=== PATIENT | female | born 1985 | race Caucasian/White ===

== ENCOUNTER 2017-12-05 08:20 | Emergency (ER) | payer BC ==
--- NOTE | 2017-12-05 08:28 | UC ---
Throat Pain/Nasal Tacos HPI - HPI Summary HPI Summary: 32 y/o female presents to the urgent care c/o sore throat, chills and mild NASCIMENTO for the past 2 days. Pt has not taking anything to alleviate symptoms. Family w / similar symptoms. Pain w/ swallowing is 3/10. Pt denies fever, cough, URI, SOB , chest pain, abdominal pain, N/v/D. - History of Current Complaint Stated Complaint: SORE THROAT Time Seen by Provider: 12/05/17 08:27 Hx Obtained From: Patient ?: No Onset/Duration: Gradual Onset, Lasting Days - 2 days, Still Present, Worse Since - today Severity: Mild Pain Intensity: 3 Pain Scale Used: 0-10 Numeric Cough: None Associated Signs & Symptoms: Positive: Dysphagia, Other - chills. Negative: Fever - Epiglottits Risk Factors Epiglottis Risk Factors: Negative - Allergies/Home Medications Allergies/Adverse Reactions: Allergies Allergy/AdvReac Type Severity Reaction Status Date / Time No Known Allergies Allergy Verified 12/05/17 08:35 PMH/Surg Hx/FS Hx/Imm Hx Previously Healthy: Yes - Pt denies PMHX - Family History Family History: Hypothyrodism - Social History Occupation: Employed Full-time Lives: With Family Review of Systems Constitutional: Chills Skin: Negative Eyes: Negative ENT: Sore Throat Respiratory: Negative Cardiovascular: Negative Gastrointestinal: Negative Genitourinary: Negative Motor: Negative Neurovascular: Negative Musculoskeletal: Negative Neurological: Headache Psychological: Negative Is Patient Immunocompromised?: No All Other Systems Reviewed And Are Negative: Yes Physical Exam - Summary Physical Exam Summary: VITAL SIGNS: Reviewed. GENERAL: Patient is a well developed and nourished female who is sitting comfortable in the examining table. Patient is not in any acute respiratory distress. HEAD AND FACE: No signs of trauma. No ecchymosis, hematomas or skull depressions. No sinus tenderness. EYES: PERRLA, EOMI x 2, No injected conjunctiva, no nystagmus. No photophobia. EARS: Hearing grossly intact. Ear canals and tympanic membranes are within normal limits. MOUTH: Positive pharynx with erythema, exudates, palatal petechiae. B/L tonsillar enlargement with exudate. Uvula in midline. NECK: Supple, trachea is midline, Positive anterior cervical lymphadenopathy, no JVD, no carotid bruit, no c-spine tenderness, neck with full ROM. No meningeal signs, no Kernig's or brudzinskis signs. CHEST: Symmetric, no tenderness at palpation LUNGS: Clear to auscultation bilaterally. No wheezing or crackles. CVS: Regular rate and rhythm, S1 and S2 present, no murmurs or gallops appreciated. ABDOMEN: Soft, non-tender. No signs of distention. No rebound no guarding, and no masses palpated. Bowel sounds are normal. EXTREMITIES: FROM in all major joints, no edema, no cyanosis or clubbing. NEURO: Alert and oriented x 3. No acute neurological deficits. Speech is normal and follows commands. SKIN: Dry and warm Triage Information Reviewed: Yes Throat Pain/Nasal Course/Dx - Course Course Of Treatment: 32 y/o female presents to the urgent care c/o sore throat, chills and mild NASCIMENTO for the past 2 days. Pt has not taking anything to alleviate symptoms. Family w/ similar symptoms. Pain w/ swallowing is 3/10. Pt denies fever, cough, URI, SOB, chest pain, abdominal pain, N/v/D. Hx obtained. Pt w/ pharyngitis on examination. Rapid strep ordered, result: negative. Viral pharyngitis.Pt Rx ibuprofen PO to alleviates symptoms of pain and swelling. Advised on hand washing to avoid spreading. Pt advised to rest, eat well and avoid strenuous exercise. If symptoms do not improve or worsen advised to return to the urgent care or f/u with her PCP for further evaluation and treatment. Pt understood and agreed w/ plan of care. - Differential Dx/Diagnosis Differential Diagnosis/HQI/PQRI: Influenza, Laryngitis, Mononucleosis, Pharyngitis, Tonsillitis, URI Provider Diagnoses: 1- Viral Pharyngitis Discharge - Sign-Out/Discharge Documenting (check all that apply): Patient Departure - D/c home All imaging exams completed and their final reports reviewed: No Studies - Discharge Plan Condition: Good Disposition: HOME Prescriptions: Ibuprofen TAB* [Motrin TAB* 600 MG] 600 mg PO Q6H PRN #30 tab PRN Reason: Sore Throat Patient Education Materials: Pharyngitis (ED) Referrals: Bijal Esposito MD [Medical Doctor] - 3 Days Additional Instructions: 1-Please take ibuprofen PO q6-8hrs prn as instructed after meals to alleviate pain and swelling. Increase fluid intake, eat well, rest and avoid strenuous exercise 2-If symptoms do not improve or worsen please return to the urgent care or f/u with your PCP in 3 days for further evaluation and treatment. - Billing Disposition and Condition Condition: GOOD Disposition: Home - Attestation Statements Provider Attestation: Per institutional requirements, I have reviewed the chart, however, I was not consulted specifically or made aware of this patient by the midlevel provider. I did not personally evaluate, interact with , or disposition this patient
[2017-12-05 08:35] VITALS: BP 102/75
== END 2017-12-05 09:08 | disposition home or self-care (01) ==
LOC: UCEAST 08:20
DX: J02.9 Acute pharyngitis, unspecified (principal)
CPT/HCPCS: 87651; 99212; G0463

== ENCOUNTER 2018-04-06 15:36 | Emergency (ER) | payer BC ==
[2018-04-06 15:44] VITALS: BP 124/90
--- NOTE | 2018-04-06 17:27 | UC ---
Abdominal Pain Female HPI - HPI Summary HPI Summary: 33-year-old female presents with 2 week history of intermittent epigastric pain. States pain has become more intense the past 2 days. Describes the pain as a gnawing pain that tends to occur around supper time and then slowly subsides over a matter of a couple hours. Associated with some mild bloating and nausea when the pain is at its most intense. States she's experienced similar pains in the past particularly at times of high stress. States she is having regular normal bowel movements. Denies fever, chills, chest pain, palpitations, shortness of breath, heartburn, vomiting, diarrhea, dysuria, frequency, urgency, vaginal discharge, or abnormal bleeding. Last menstrual period was approximately 3 weeks ago. - History of Current Complaint Chief Complaint: UCGI Stated Complaint: ABDOMINAL PAIN Time Seen by Provider: 04/06/18 16:52 Hx Obtained From: Patient Hx Last Menstrual Period: 03/21/18 Pain Intensity: 8 Allergies/Adverse Reactions: Allergies Allergy/AdvReac Type Severity Reaction Status Date / Time No Known Allergies Allergy Verified 04/06/18 15:44 PMH/Surg Hx/FS Hx/Imm Hx Previously Healthy: Yes - Denies significant PMH - Surgical History Surgical History: None - Family History Known Family History: Positive: Non-Contributory Family History: Hypothyrodism - Social History Occupation: Employed Full-time Lives: With Family Alcohol Use: None Substance Use Type: None Smoking Status (MU): Never Smoked Tobacco Review of Systems All Other Systems Reviewed And Are Negative: Yes Constitutional: Negative: Fever, Chills ENT: Positive: Negative Respiratory: Negative: Shortness Of Breath, Cough Cardiovascular: Negative: Palpitations, Chest Pain Gastrointestinal: Positive: Abdominal Pain, Nausea. Negative: Vomiting, Diarrhea Genitourinary: Negative: Dysuria, Hematuria, Frequency, Urgency, Vaginal/Penile Discharge, Ulceration/Lesion Musculoskeletal: Positive: Negative Neurological: Positive: Negative Is Patient Immunocompromised?: No Physical Exam - Summary Physical Exam Summary: GENERAL APPEARANCE: Well developed, well nourished, alert and cooperative, and appears to be in no acute distress. CARDIAC: Normal S1 and S2. No S3, S4 or murmurs. Rhythm is regular. There is no peripheral edema, cyanosis or pallor. Extremities are warm and well perfused. Capillary refill is less than 2 seconds. LUNGS: Clear to auscultation without rales, rhonchi, wheezing or diminished breath sounds. ABDOMEN: Positive bowel sounds. Soft, nondistended. Mild epigastric tenderness. No guarding or rebound. No masses or hepatosplenomegally. No CVA tenderness. MUSKULOSKELETAL: ROM intact to all extremities. No joint erythema or tenderness. Normal muscular development. Normal gait. SKIN: Skin normal color, texture and turgor with no lesions or eruptions. Triage Information Reviewed: Yes Vital Signs: Initial Vital Signs Temp 97.7 F 04/06/18 15:38 Pulse 83 04/06/18 15:38 Resp 16 04/06/18 15:38 BP 124/90 04/06/18 15:38 Pulse Ox 100 04/06/18 15:38 Vital Signs Reviewed: Yes Diagnostics - Laboratory Diagnostic Studies Completed/Ordered: POC UA trace blood otherwise normal. Urine negative. Abd Pain Female Course/Dx - Course Course Of Treatment: 33-year-old female presents with 2 week history of intermittent epigastric pain. States pain has become more intense the past 2 days. Describes the pain as a gnawing pain that tends to occur around supper time and then slowly subsides over a matter of a couple hours. Associated with some mild bloating and nausea when the pain is at its most intense. States she' s experienced similar pains in the past particularly at times of high stress. States she is having regular normal bowel movements. Denies fever, chills, chest pain, palpitations, shortness of breath, heartburn, vomiting, diarrhea, dysuria, frequency, urgency, vaginal discharge, or abnormal bleeding. Last menstrual period was approximately 3 weeks ago. Afebrile. Vital signs stable. Exam reveals an adult female in no acute distress with mild epigastric tenderness without rebound or guarding an otherwise unremarkable exam. POC UA trace blood. Urine negative. Her history and exam are consistent with possible peptic ulcer disease therefore plan start her on ranitidine 150 mg twice a day. I did discuss with the patient I cannot fully rule out other causes including gallbladder disease or pancreatitis although I have low suspicion for these. She is to follow-up with her primary care provider in 7 days for recheck of her symptoms. Anticipatory guidance and warning symptoms requiring immediate evaluation in the emergency room were reviewed with the patient. She verbalizes understanding and is in agreement with this plan of care. - Differential Dx/Diagnosis Differential Diagnosis: Ectopic , Gall Bladder Disease, Pancreatitis, Peptic Ulcer Disease, , Urinary Tract Infection Provider Diagnosis: Acute abdominal pain Discharge - Sign-Out/Discharge Documenting (check all that apply): Patient Departure All imaging exams completed and their final reports reviewed: No Studies - Discharge Plan Condition: Stable Disposition: HOME Prescriptions: raNITIdine HCl [Heartburn Relief] 150 mg PO BID #30 tablet Patient Education Materials: Acute Abdominal Pain (ED) Referrals: No Primary Care Phys,NOPCP [Primary Care Provider] - [facility] [place]Outside] Additional Instructions: Your history and exam are consistent with a peptic ulcer disease although I cannot fully exclude other possible causes such as gall bladder disease or pancreatitis. Since you are not running fever at this time I will start you on an acid reducing medication to treat for a peptic ulcer. Start ranitidine 150 mg twice a day. Try to avoid spicy foods or fatty foods as these could aggravate your symptoms. Follow up with your primary care provider in 7 days for recheck of symptoms. I have provided you with the number for the [facility] physician referral service if you need assistance with establishing with a provider. Seek immediate medical attention in the emergency room if you develop fever greater than 100.5 F, have severe or worsening of abdominal pain, persistent vomiting, blood in your vomit or bowel movements, you become weak or dizzy, or have any worsening of symptoms. - Billing Disposition and Condition Condition: STABLE Disposition: Home
== END 2018-04-06 17:38 | disposition home or self-care (01) ==
LOC: UCEAST 15:36
DX: R10.13 Epigastric pain (principal); R11.0 Nausea
CPT/HCPCS: 81003; 84702; 99212; G0463

== ENCOUNTER 2018-09-27 06:15 | Day surgery (SDC) | payer BC ==
[~2018-09-27 06:15] MED LIST: Buffered Lidocaine 1% SYRIN* 1 ML/SYRINGE INTRADERM ONE; Famotidine IV* 10 MG/ML 2 ML (20 mg) IV ONE; Famotidine IV* 10 MG/ML 2 ML (20 mg) ONE; Lactated Ringers 1000 ML Bag* 1,000 ML IV SCH; Scopolamine 1.5 mg* PATCH ONE; Scopolamine 1.5 mg* PATCH TRANSDERM SCH
[2018-09-27] MEDS ORDERED: Ropivacaine 0.2% * 2 MG/ML VIAL ONE (06:48)
[2018-09-27] MEDS ORDERED: Lidocaine 1% w EPI 1:200,000* 30 ML VIAL ONE (06:48)
[2018-09-27] MEDS ORDERED: ceFAZolin VIAL(*) VIAL ONE (07:02)
[2018-09-27] MEDS ORDERED: Midazolam* 1 MG/ML 5 ML VIAL (5 MG) ONE (07:24)
[2018-09-27] MEDS ORDERED: fentaNYL* 50 MCG/ML 2 ML VIAL (100 MCG VIAL) ONE (07:25)
[2018-09-27] MEDS ORDERED: DiMENhydriNATE IV* 50 MG/ML VIAL ONE (08:09)
[2018-09-27] MEDS ORDERED: Ondansetron INJ* 2 MG/ML VIAL ONE (08:09)
[2018-09-27] MEDS ORDERED: Dexamethasone IV* 4 MG/ML 1 ML (4 MG) ONE (08:09)
[2018-09-27] MEDS ORDERED: Succinylcholine* 20 MG/ML 10 ML VIAL ONE (08:09)
[2018-09-27] MEDS ORDERED: Propofol* 10 MG/ML 20 ML BTL ONE (08:09)
[2018-09-27] MEDS ORDERED: Lidocaine 2% PF * 5 ML VIAL ONE (08:09)
[2018-09-27] MEDS ORDERED: HYDROmorphone INJ* 0.5 MG/0.5 ML SYRINGE ONE (09:13)
[2018-09-27] MEDS ORDERED: oxyCODONE TAB* 5 MG TAB PO PRN (09:23)
[2018-09-27] MEDS ORDERED: Acetaminophen TAB* 325 MG PO PRN (09:23)
[2018-09-27] MEDS ORDERED: DiMENhydriNATE IV* 50 MG/ML VIAL IV PUSH PRN (09:23)
[2018-09-27] MEDS ORDERED: HYDROmorphone INJ1* 1 MG/ML SYRINGE IV PRN (09:23)
[2018-09-27] MEDS ORDERED: Naloxone* 0.4 MG/ML 1 ML VIAL IV PRN (09:23)
[2018-09-27] MEDS ORDERED: Acetaminophen TAB* 325 MG ONE (09:47)
--- NOTE | 2018-09-27 11:42 | OP ---
CC: PCP __(?)__ * DATE OF OPERATION: 09/27/18 - [facility] DATE OF : 85 SURGEON: Anahi Millan MD. BIOMEDICAL EQUIPMENT SPECIALIST: KELLY Gurrola. Intermediate Project Manager was needed for the entirety of the case to help with positioning, retraction, and was utilized throughout all portions of the case. ANESTHESIOLOGIST: Dr. Rodriguez. ANESTHESIA: General. PRE-OP DIAGNOSIS: Right anterior cruciate ligament grade 3 rupture. POST-OP DIAGNOSIS: Right anterior cruciate ligament grade 3 rupture. OPERATIVE PROCEDURE: Right knee ACL reconstruction using autograft. COMPLICATIONS: None. ESTIMATED BLOOD LOSS: Minimal. TOURNIQUET TIME: 17 minutes. IMPLANTS USED: [employer]hew SoftSilk 7 x 20 and 9 x 25. INDICATIONS: Susi Aleman is a 33-year-old female who sustained injury to her right knee in mid-April 2018. She had an MRI that confirmed the diagnosis. She did physical therapy. She has persistent instability and would like to have this taken care of. The risks and benefits were discussed at length to include but not limited to bleeding, infection, damage to nerves; vessels; surrounding structures, wound nonhealing, persistent pain, need for surgery, scarring, stiffness, incomplete relief of symptoms, and risks of anesthesia. DESCRIPTION OF PROCEDURE: The patient was greeted in the preoperative area by the attending surgeon. The correct extremity was marked and consent was confirmed. The patient was brought back to the operative suite, where she was placed in the supine position on the operating table and then underwent general anesthesia with LMA intubation, after which she was appropriately positioned on the bed. A lateral post was positioned. An unsterile tourniquet was placed on the proximal thigh. The beanbag was placed to keep the knee at 90 degrees. The right leg was then prepped and draped in the usual sterile fashion beginning with chlorhexidine soap, scrub, and alcohol wipe and a final prep with ChloraPrep. After appropriate surgical pause indicating side, site, procedure, and administration of antibiotics, the tourniquet was inflated to 250 mmHg. The knee was intra-articularly injected with 1% lidocaine with epi. A #15 blade was used to make a midline incision on the patellar tendon extending somewhat medially. The soft tissue was carefully dissected to expose the paratenon, which was incised and saved for later closure. The patellar tendon width was about 31 mm, the center 10 mm was then harvested using 10 blade full-thickness flaps. A proximal bone block was harvested using sagittal saw to be 9 x 23 mm, distally 10 x 30 mm. Bone block was harvested. The graft was then prepared on the back table by the assistant loan processor. Meanwhile, the surgeon closed the patellar tendon with 0-Vicryl with care not to overtighten to cause patella baja. Tourniquet was then deflated. Attention was directed to the arthroscopy portion of the case. Through the capsule, an 11 blade was used to make an incision and the scope was inserted. There was evidence of synovitis as well as a plica. The anteromedial portal was made using 18-gauge for localization. The shaver was used to debride back the abundant plica synovitis, exposed the ACL, which had a grade 3 rupture and was scarred to the PCL. Mary and biters were used to debride the remnant back. The diagnostic arthroscopy portion was then done, the patellofemoral joint had grade 0 to 1 changes. The medial and lateral gutters were intact. The medial compartment was examined. There was intact meniscus with grade 0 to 1 changes of the medial femoral condyle and medial plateau. The knee was placed in figure-of- four and the lateral compartment was examined. There was some fraying near the root of the meniscus, but it did not appear to be unstable. The root was attached. The remainder of the meniscus looked normal. There were grade 0 changes to the lateral femoral condyle, grade 0 to 1 to the lateral plateau. The knee was then placed to 90 degrees and then the femoral wall was then prepared and skeletonized using the electrocautery device. A starting awl was then used to rony the original start reference point and this was checked by changing the camera from the lateral to the medial compartments and is visualized and used as reference point. Then , the tip to tip guide set at around 50 degrees was placed through the center of the tibial tunnel. The tibial footprint, the guidewire was placed. Once this was appropriately placed, the size 10 mm full-bore reamer was used to drill the tunnel. The excess bone was saved for later bone graft. The tunnel was then rasped and care was placed to prevent any fluid egress. The attention was then directed to the femoral tunnel. The Schroeder and Nephew straight femoral guide was then placed in the center of the femoral footprint and then the knee was hyperflexed. The Beath pin was then drilled in the center and the 9 mm low- profile reamer was then used to drill about 24 mm in depth. All excess bone was removed. There was a good back wall. The tunnel was then notched. A #2 Ethibond suture was placed through the islet of the Beath pin and passed through the tunnel and then anterograde through the tibial tunnel as a reference to shuttle the sutures for the graft. The graft, which had been wrapped in a saline-soaked gauze, was then brought to the field and then passed under direct arthroscopic visualization to be well seated in the femoral tunnel. This was then secured with a 7 x 20 mm SoftSilk screw with excellent purchase. The knee was then taken to full extension. There was no evidence of impingement on the graft. The knee was then cycled 15 times. There was no evidence of creep or stress on the graft or tearing of the graft. The scope was brought back to the joint to confirm this. Then, the knee was taken to about 20 to 30 degrees of flexion with tension on the tibial sutures. A size 9 x 25 SoftSilk screw was used to secure the tibial tunnel. This was secured with excellent purchase. The knee was taken through the range of motion. Manuel's was assessed. The scope was brought to the joint and the graft was found to be in good position. The wounds were then copiously irrigated with sterile saline. Final images were obtained. Excess bone graft was then placed in the patellar defect and anything remained was placed in the tibial defect. This was oversewn with 0-Vicryl in the patellar defect and the paratenon was closed with 2-Vicryl in a running fashion. The wounds were copiously irrigated with sterile saline. The skin was closed in layers with 3-0 Monocryl in the subcutaneous in a running fashion. Sterile dressings were applied. Cryo/Cuff and a hinged knee brace was then applied. She was awoken from anesthesia and transferred to PACU in stable condition. POSTOPERATIVE PLAN: She will be nonweightbearing as tolerated and will be discharged on pain medication, antibiotics. DVT prophylaxis was considered, but deferred due to no previous personal or family history. I will see the patient back in 6 to 8 days. [id number]/[facility] #: [id number] [facility] MEDICAL CENTERJett
[2018-09-27 13:26] VITALS: BP 110/78
== END 2018-09-27 10:45 | disposition home or self-care (01) ==
LOC: OREAST 06:15
PROVIDERS: ATTEND Orthopaedic Surgery
DX: S83.511A Sprain of anterior cruciate ligament of right knee, initial encounter (principal); X58.XXXA Exposure to other specified factors, initial encounter; Y92.9 Unspecified place or not applicable; Z87.891 Personal history of nicotine dependence; K21.9 Gastro-esophageal reflux disease without esophagitis; K27.9 Peptic ulcer, site unspecified, unspecified as acute or chronic, without hemorrhage or perforation
CPT/HCPCS: 81025; A9270-GY; C1713; J0330; J0690; J1100; J1170; J1240; J2001; J2250; J2405; J2704; J2795; J3010

== ENCOUNTER 2018-10-03 15:14 | Emergency (ER) | payer BC ==
--- OUTSIDE RECORDS SUMMARY | 2018-10-03 16:50 | XMS REPORT | Continuity of Care Document ---
:1985 External Reference #:[id number] Author Name Yue Roy Care Team Providers Name Role Phone Lindsey Matias DO Primary Care Physician Unavailable Payers Date Identification Numbers Payment Provider Subscriber Effective: 2018 Policy Number: [id number] [employer] Chery Urban Expires: 2018 PayID: [id number] [address] [place] [address] Effective: 2018 Policy Number: [id number] [employer] Marcus Aleman PayID: [id number] [address] [address] [place] [address] Problems Active Problems Provider Date Sprain of cruciate ligament of knee Anahi Millan MD Onset: 09/16/2018 Family History Date Family Member(s) Observation Comments General Cancer Social History Type Date Description Comments Sex Unknown 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 ETOH Use Denies alcohol use Tobacco Use Start: Unknown Patient has never smoked Smoking Status Reviewed: 09/16/18 Patient has never smoked Exercise Type/Frequency Exercises regularly Allergies, Adverse Reactions, Alerts Description No Known Drug Allergies Medications Active Medications SIG Qnty Indications Ordering Provider Date Ranitidine 150 1-2 tablets at 30tabs Anahi Millan MD 08/19/2018 Maximum Strength hour of sleep as 150mg directed Tablets Omeprazole 1 by mouth every Unknown 10mg day Capsules DR Iron (Ferrous 1 tab by mouth Unknown Gluconate) twice a day with 256(28Fe) mg meals Tablets Vitamin B Complex-C Unknown Capsules Vital Signs Date Vital Result Comment 09/16/2018 9:10am Height 61 inches 5'1" Weight 110.00 lb Heart Rate 76 /min BP Systolic 102 mmHg BP Diastolic 58 mmHg Body Temperature 98.2 F Pain Level 2 BMI (Body Mass Index) 20.8 kg/m2 08/19/2018 10:22am Height 61 inches 5'1" Weight 110.00 lb Heart Rate 54 /min Body Temperature 96.2 F Pain Level 1 O2 % BldC Oximetry 99 % BMI (Body Mass Index) 20.8 kg/m2 Encounters Type Date Location Provider Dx Diagnosis Office Visit 09/16/2018 Orthopedic Anahi Millan MD S83.511A Sprain of 9:[facility] anterior cruciate ligament of right knee, init Office Visit 08/19/2018 Orthopedic Anahi Millan MD M25.361 Other 10:00a [facility] instability, right knee S83.511A Sprain of anterior cruciate ligament of right knee, init Plan of Treatment Future Appointment(s):09/27/2018 7:30 am - Whitney Castro PA-C at [facility]10/04/2018 8:30 am - Whitney Castro PA-C at [facility]09/27/2018 7:30 am - Anahi Millan MD at [facility]09/16/2018 - Anahi Millan MDS83.511A Sprain of anterior cruciate ligament of right knee, initialFollow up:Follow up: for h and p or 6-8 days post op
--- OUTSIDE RECORDS SUMMARY | 2018-10-03 16:50 | XMS REPORT | Continuity of Care Document ---
:1985 External Reference #:[id number] Author Name Luis Fernando Castro MD Address [facility] [place] [address] Care Team Providers Name Role Phone Lindsey Matias DO Care Team Information Sisal Operator Unavailable Lindsey Matias DO Primary Care Physician Unavailable Payers Date Identification Numbers Payment Provider Subscriber Policy Number: [id number] [facility] [address] DENAE Chery Urban PayID: [id number] [address] [address] [place] [address] Problems Active Problems Provider Date Epigastric pain Luis Fernando Castro MD Onset: 09/08/2018 Family History Date Family Member(s) Observation Comments Mother Heart Attack Social History Type Date Description Comments Sex Unknown Tobacco Use Start: Unknown Patient has never smoked Smoking Status Reviewed: 09/08/18 Patient has never smoked Allergies, Adverse Reactions, Alerts Description No Known Drug Allergies Medications Active Medications SIG Qnty Indications Ordering Provider Date Omeprazole Lindsey Matias,DO 20mg Capsules Ranitidine HCL Lindsey Matias,DO 150mg Tablets Vital Signs Date Vital Result Comment 09/08/2018 11:06am Height 61.5 inches 5'1.50" Weight 108.00 lb BP Systolic 98 mmHg BP Diastolic 76 mmHg Heart Rate 89 /min BMI (Body Mass Index) 20.1 kg/m2 Plan of Treatment Future Appointment(s):10/25/2018 1:30 pm - Luis Fernando Castro MD at [facility]09/08/2018 - Luis Fernando Castro, MDR10.13 Epigastric painComments:RISKS AND BENEFITS OF THE PROCEDURE WERE DISCUSSED WITH PATIENT. I had a very long discussion with the patient regarding all of her symptoms we discussed possibilities of acid reflux, peptic ulcer disease, hiatal hernia, celiac disease and/or H. pylori. I would like to begin her evaluation with an upper endoscopy and I will make arrangements for it
--- NOTE | 2018-10-03 19:11 | ED ---
Lower Extremity - HPI Summary HPI Summary: This patient is a 33 year old F presenting to [facility] accompanied by father and with a chief complaint of right calf pain since 10/02/18 in the evening ( last pm). Pt had a torn ACL, and had a surgery on her right ACL 09/27/18 (side of current calf pain). Pt removed her knee brace for the first time at PT on 09/30. When pt notified Dr. Millan of her calf pain, she recommended that the pt come to the ED to evaluate for a possible DVT. Patient also reports pain in her bilateral flanks but not in her chest. Patient denies CP, SOB, or drainage on the ACL wound dressing. Pt has a PMH of "stomach ulcers" and anemia. Pt has no PMHx of asthma, DVT or PE. LNMP was 09/21/18. Per triage, the patient rates her calf pain a 2/10 in severity. Vital signs while in room: HR 75 bpm, BP 116/80, O2 sat 100% - History of Current Complaint Chief Complaint: EDExtremityLower Stated Complaint: RT LEG SWELLING AND PAIN PER PT Time Seen by Provider: 10/03/18 16:25 Hx Obtained From: Patient, Family/[employer] - father and her Hx Last Menstrual Period: 09/21/18 Mechanism Of Injury: Other - no injury, ACL surgery 09/27/18 Onset of Pain: Days - last pm Onset/Duration: Days - 10/02/18 evening Severity Initially: Mild Severity Currently: Mild Pain Intensity: 2 Pain Scale Used: 0-10 Numeric Timing: Constant Location: Is Discrete @ - right calf, side of recent surgery Character Of Pain: Aching Associated Signs And Symptoms: Negative: Other - Pos: bilateral flank pain. 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 GARNICA History: Denies: Other Problems/Disorders Musculoskeletal History: Reports: Other Musculoskeletal History - RIGHT ACL TEAR with SURG 09/27/18 Sensory History: Denies: Hx Contacts or Glasses, Hx Hearing Aid Opthamlomology History: Denies: Hx Contacts or Glasses Neurological History: Denies: Other Neuro Impairments/Disorders - Surgical History Surgery Procedure, Year, and Place: WISDOM TEETH REMOVAL-DR. QUINTANILLA- OFFICE Hx Anesthesia Reactions: Yes - NAUSEA AND VOMITING Infectious Disease History: No Infectious Disease History: Denies: Hx Hepatitis, Hx Human Immunodeficiency Virus (HIV), Traveled Outside the [place] in Last 30 Days - Family History Known Family History: Positive: Hypertension, Other - Fibromuscular dysplasia, Osteoarthritis; Neg hx of PE or DVT in family Family History: Hypothyrodism - Social History Lives: With Family - Alcohol Use: None Substance Use Type: Reports: None Hx Tobacco Use: No Smoking Status (MU): Never Smoked Tobacco Have You Smoked in the Last Year: No Review of Systems Constitutional: Negative Negative: Chest Pain Negative: Shortness Of Breath Positive: other - bilateral flank pain Musculoskeletal: Other - pos - calf pain Negative: Other - neg - drainage on dressing Skin: Negative Neurological: Negative Psychological: Normal All Other Systems Reviewed And Are Negative: Yes Physical Exam - Summary Physical Exam Summary: Appearance: well-appearing, minimal pain distress in right calf, well-nourished Skin: Warm, color reflects adequate perfusion, dry, ecchymosis on right lower calf, sutures dry and intact, Steri-Strips remain in place Head: Normal Head/Face inspection, atraumatic Eyes: Conjunctiva clear ENT: Normal inspection Neck: Supple, no nodes, no JVD Respiratory: Lungs clear, normal breath sounds, no respiratory distress Cardio: RRR, No murmur, pulses normal, brisk capillary refill Abdomen: Soft, nontender, no CVAT Bowel sounds: Present Musculoskeletal: Strength Intact/ROM intact except right knee, no calf tenderness, but anterior tibial discomfort in area of ecchymosis, able to flex knee to 150 degrees, no edema. Minimal discomfort upon palpation of her right 5th intercostal space. No crepitus, no chest wall ecchymosis in this area. Psychological: Normal Neuro: Alert, muscle tone normal, no focal deficit Triage Information Reviewed: Yes Vital Signs On Initial Exam: Initial Vitals Temp Pulse Resp BP Pulse Ox 97.6 F 114 18 121/89 100 10/03/18 15:29 10/03/18 15:29 10/03/18 15:29 10/03/18 15:29 10/03/18 15:29 Vital Signs Reviewed: Yes Diagnostics - Vital Signs Vital Signs Temp Pulse Resp BP Pulse Ox 10/03/18 15:29 97.6 F 114 18 121/89 100 - Laboratory Result Diagrams: 10/03/18 19:14 10/03/18 19:14 Lab Statement: Any lab studies that have been ordered have been reviewed, and results considered in the medical decision making process. - Ultrasound Right venous doppler Ultrasound Interpretation Completed By: Radiologist Summary of Ultrasound Findings: Venous Doppler reveals, per radiologist, No acute findings. No evidence of deep vein thrombosis. ED physician has reviewed this radiology report. Re-Evaluation - Re-Evaluation First Eval Re-Evaluation Time: 20:50 Change: Unchanged Comment: Venous doppler results, (just reported by radiologist) are discussed with pt and her and father. Second Eval Re-Evaluation Time: 21:40 Change: Unchanged Comment: Re-evaluated, ann-marie and brace re-applied and discussed discharge instructions. Lower Extremity Course/Dx - Course Course Of Treatment: 33 yo F with hx right ACL surgery at [facility] [place] six days ago presents with c/o right calf pain since last pm. Pt had venous doppler of the right leg which was negative for DVT. Initial physical exam revealed minimal pain in her right leg, primarily in her right anterior tibia in an area of ecchymosis. Her sutures were dry and intact, and the Steri-Strips were in place. Pt was able to flex her right knee approximately 150 degrees. Pt had minimal discomfort upon palpation of her right 5th intercostal space but no ecchymosis or crepitus in this area, referable to an additional complaint of bilateral flank pain. Venous Doppler reveals, per radiologist, No acute findings. No evidence of deep vein thrombosis. Pt medications reviewed this visit. Nurses note and triage note reviewed. Pt has no allergies. Blood work was obtained in part to check her renal function in the event a NOAC would be necessary for DVT treatment. The only significant abnormality was her C - reactive protein which is elevated at 22.69, likely due to her recent surgery. Patient will be discharged with follow up regarding her ACL surgery with Dr. Millan as scheduled. The patient is agreeable with this plan. - Diagnoses Differential Diagnosis/HQI/PQRI: Positive: Cellulitis, Compartment Syndrome, DVT , Infection Provider Diagnoses: Right leg pain, S/P ACL surgery Discharge ED - Sign-Out/Discharge Documenting (check all that apply): Patient Departure - Discharge Patient Received Moderate/Deep Sedation with Procedure: No - Discharge Plan Condition: Stable Disposition: HOME Patient Education Materials: Leg Pain (ED) Referrals: Anahi Millan MD [Medical Doctor] - (as scheduled ) Additional Instructions: Your doppler study of your leg did not show a blood clot. You should continue with the care as prescribed Dr. Millan. You should call her office in the morning also to report that you had leg pain that brought you to the ER. Dr. Nunes recommends holding your PT until you speak with Dr. Millan's coverage. Return to the ER if you have new or worsening symptoms. - Billing Disposition and Condition Condition: STABLE Disposition: Home - Attestation Statements Document Initiated by Vishnu: Yes Documenting Scribe: Glory Tian Provider For Whom Vishnu is Documenting (Include Credential): Dr. Tita Nunes MD Scribe Attestation: Glory Chino scribed for Dr. Tita Nunes MD on 10/25/18 at 1501. Scribe Documentation Reviewed: Yes Provider Attestation: The documentation as recorded by the Glory bonilla accurately reflects the service I personally performed and the decisions made by me, Dr. Tita Nunes MD Status of Scribe Document: Viewed
[2018-10-03 19:24] LABS: Hematocrit 38 % (35-47); Hemoglobin 12.4 g/dL (12.0-16.0); Mean Corpuscular HGB Conc 33 g/dL (31-36); Mean Corpuscular Hemoglobin 28 pg (27-31); Mean Corpuscular Volume 84 fL (80-97); Mean Platelet Volume 7.2 fL (7.4-10.4); Platelet Count 311 10^3/uL (150-450); Red Blood Count 4.46 10^6 /uL (3.70-4.87); Red Cell Distribution Width 23 % (10-15); White Blood Count 4.8 10^3/uL (3.5-10.8)
[2018-10-03 19:28] LABS: INR 1.02 (0.82-1.09)
[2018-10-03 19:36] LABS: ABS Lymphocytes 1.2 10^3/ul (1.0-4.8); ABS Monocytes 0.5 10^3/ul (0-0.8); Eosinophil % 0.7 %; Lymphocyte % 24.9 %; Nucleated Red Blood Cells % 0.1
[2018-10-03 19:39] LABS: ALT 9 U/L (7-52); AST 14 U/L (13-39); Alkaline Phosphatase 44 U/L (34-104); Anion Gap 6 mmol/L (2-11); BUN/Creatinine Ratio 27.1 (8-20); Blood Urea Nitrogen 16 mg/dL (6-24); C Reactive Protein 22.69 mg/L (<8.01); CO2 Carbon Dioxide 27 mmol/L (22-32); Calcium 9.4 mg/dL (8.6-10.3); Chloride 103 mmol/L (101-111); EGFR Non-African American 117.4 (>60); Globulin 4.1 g/dL (2-4); Glucose 92 mg/dL (70-100); Sodium 136 mmol/L (135-145); Total Protein 8.1 g/dL (6.4-8.9)
[2018-10-03 19:46] LABS: HCG Pregnancy < 0.60 mIU/mL
[2018-10-04 01:14] VITALS: BP 113/85
== END 2018-10-04 01:13 | disposition home or self-care (01) ==
LOC: ED 15:14
DX: M79.604 Pain in right leg (principal); D64.9 Anemia, unspecified
CPT/HCPCS: 36415; 80053; 84702; 85025; 85060; 85610; 86140; 99282